=== PATIENT | female | born 1940 | race Caucasian/White ===

== ENCOUNTER → 2017-12-18 | Outpatient (CLI) | payer OTHER | LOC: M.RAD 13:29 | DX: Z12.31 Encounter for screening mammogram for malignant neoplasm of breast (principal); J44.9 Chronic obstructive pulmonary disease, unspecified; J84.9 Interstitial pulmonary disease, unspecified; I70.0 Atherosclerosis of aorta ==

== ENCOUNTER 2020-10-19 10:44 | Emergency (ER) | payer OTHER ==
[~2020-10-19] VITALS: Ht 172.7 cm; Wt 50.8 kg
[2020-10-19] MEDS ORDERED: PREVAGEN (11:03)
[2020-10-19 11:57] LABS: ABSOLUTE LYMPHOCYTES 0.6 thou/uL (0.8-5.3); ABSOLUTE MONOCYTES 0.7 thou/uL (0.0-1.2); ABSOLUTE NEUTROPHILS 6.5 thou/uL (1.6-8.1); BASOPHILS 0.5 %; EOSINOPHILS 0.2 %; HEMATOCRIT 35.7 % (37.0-47.0); HEMOGLOBIN 11.9 gm/dL (12.0-15.0); LYMPHOCYTES 7.9 %; MCH 29.4 pg (26.0-34.0); MCHC 33.4 g/dL (28.0-37.0); MCV 87.8 fL (80.0-100.0); MONOCYTES 8.6 %; MPV 8.3 fl. (7.2-11.1); NUCLEATED RBCS 0 /100WBC; PLATELET COUNT* 179 thou/uL (150-400); POLYS 82.8 %; RBC 4.07 mil/uL (4.20-5.00); RDW-CV 16.4 % (10.5-14.5); WBC 7.9 thou/uL (4.0-11.0)
[2020-10-19 12:05] LABS: CALCIUM 8.5 mg/dL (8.5-10.1); CREATININE 0.7 mg/dL (0.6-1.3); POTASSIUM 3.5 mmol/L (3.5-5.1)
[2020-10-19 12:10] LABS: ALBUMIN 3.3 g/dL (3.4-5.0); TOTAL BILIRUBIN 0.8 mg/dL (<0.1-1.0); URIC ACID* 2.7 mg/dL (2.6-7.2)
[2020-10-19 13:01] LABS: ESR (SEDRATE) 80 mm/hr (0-30)
[2020-10-19] MEDS ORDERED: DOXYCYCLINE 10100 M2 PO ×2 (13:09)
[2020-10-19] MEDS ORDERED: PREDNISONE 10 M10 MG PO (13:09)
[2020-10-19] MEDS ORDERED: HYDROCODON-ACE1 EAC7 PO (13:10)
[2020-10-19 13:35] VITALS: BP 108/69
== END 2020-10-19 13:36 | disposition home or self-care (01) ==
LOC: M.ERS 10:44
PROVIDERS: Nurse Practitioner Family
DX: M25.561 Pain in right knee (principal); R22.41 Localized swelling, mass and lump, right lower limb; L53.9 Erythematous condition, unspecified; Z86.73 Personal history of transient ischemic attack (TIA), and cerebral infarction without residual deficits